=== PATIENT | male | born 1955 | race Caucasian/White ===

== ENCOUNTER 2018-06-11 05:48 | Inpatient (IN) ==
[2018-06-11] MEDS ORDERED: TICAGRELOR 90 MG TABLET PO STA (05:50)
[2018-06-11] MEDS ORDERED: MORPHINE 4 MG/1 ML VIAL ONE (05:51)
[2018-06-11] MEDS ORDERED: NITROGLYCERIN 2% OINT 1 INCH/GM PACK TOP ONE (05:51)
[2018-06-11] MEDS ORDERED: ASPIRIN 325 MG TABLET ONE (05:51)
[2018-06-11] MEDS ORDERED: ONDANSETRON 4 MG/2 ML VIAL ONE (05:51)
[2018-06-11] MEDS ORDERED: TICAGRELOR 90 MG TABLET ONE (05:52)
[2018-06-11] MEDS ORDERED: HEPARIN 5,000 UNIT/1 ML VIAL ONE ×2 (05:52→06:33)
[2018-06-11] MEDS ORDERED: ONDANSETRON 4 MG/2 ML VIAL IV STA (06:03)
[2018-06-11] MEDS ORDERED: HEPARIN 5,000 UNIT/1 ML VIAL IV ONE (06:03)
[2018-06-11] MEDS ORDERED: MORPHINE 4 MG/1 ML VIAL IV STA (06:03)
[2018-06-11] MEDS ORDERED: NITROGLYCERIN 2% OINT 1 INCH/GM PACK TOP STA (06:03)
[2018-06-11] MEDS ORDERED: ASPIRIN 325 MG TABLET PO STA (06:03)
[2018-06-11] MEDS ORDERED: LIDOCAINE 1% 20 ML VIAL ONE (06:13)
[2018-06-11] MEDS ORDERED: HEPARIN/NACL 0.9% 2 UNITS/ML 1,000 ML IV ONE (06:13)
[2018-06-11 06:17] LABS: Basophils % 0.3 % (0.0-0.8); Eosinophils # 0.4 10*3/uL (0.0-0.87); Eosinophils % 3.2 % (0.00-10.9); Hematocrit 45.7 VOL% (42.0-52.0); Hemoglobin 15.2 GM/DL (14.0-18.0); Immature Granulocytes % 0.8 %; Immature Granulocytes Absolute 0.09 #; Lymphocytes # 2.8 10*3/uL (1.4-4.0); Lymphocytes % 24.5 % (21.2-54.2); Mean Corpuscular HGB Conc 33.3 GM/DL (32-36); Mean Corpuscular Hemoglobin 27 PG (27-34); Mean Platelet Volume 10.2 FL (9.6-12.0); Monocytes # 0.8 10*3/uL (0.11-0.8); Monocytes % 6.7 % (1.7-12.7); Neutrophils # 7.4 10*3/uL (1.4-7.4); Neutrophils % 64.5 % (38.7-73.9); Platelet Count 299 T/CUMM (130-400); Red Blood Count 5.64 MC/CUMM (3.8-5.5); Red Cell Distribution Width 14.2 % (9.3-17.3); White Blood Count 11.4 T/CUMM (4-12)
[2018-06-11] MEDS ORDERED: EPTIFIBATIDE 20,000 MCG/10 ML VIAL ONE (06:21)
[2018-06-11] MEDS ORDERED: EPTIFIBATIDE 75 MG/100 ML BOTTLE IV ONE (06:23)
[2018-06-11 06:24] LABS: INR 0.9; PT Patient Result 9.9 SECS
[2018-06-11] MEDS ORDERED: MIDAZOLAM 2 MG/2 ML VIAL ONE (06:24)
[2018-06-11] MEDS ORDERED: fentaNYL 100 MCG/2 ML VIAL ONE (06:24)
[2018-06-11] MEDS ORDERED: MORPHINE 10 MG/1 ML VIAL ONE (06:32)
[2018-06-11 06:33] LABS: Alanine Aminotransferase 66 U/L (16-61); Albumin 4.1 G/DL (3.4-5.0); Alkaline Phosphatase 99 U/L (45-117); Aspartate Amino Transferase 35 U/L (0-37); Blood Urea Nitrogen 20 MG/DL (7-18); Calcium 9.4 MG/DL (8.5-10.1); Glucose 139 MG/DL (74-106); Osmolality,Calculated 277.8 MOS/KG (273-304); Potassium 3.7 MMOL/L (3.5-5.1); Sodium 137 MMOL/L (136-145); Total Protein 8.2 G/DL (6.4-8.3)
[2018-06-11 06:42] LABS: Troponin I 0.085 NG/ML (0.00-0.045)
[2018-06-11] MEDS ORDERED: ONDANSETRON 4 MG/2 ML VIAL IV PRN (07:36)
[2018-06-11] MEDS ORDERED: NITROGLYCERIN SL 0.4 MG TABLET SL PRN (07:36)
[2018-06-11] MEDS ORDERED: ZALEPLON 5 MG CAPSULE PO PRN (07:36)
[2018-06-11] MEDS ORDERED: MORPHINE 4 MG/1 ML VIAL IV PRN (07:36)
[2018-06-11] MEDS ORDERED: ACETAMINOPHEN 325 MG TABLET PO PRN (07:36)
[2018-06-11] MEDS ORDERED: SODIUM CHLORIDE 0.9% 1,000 ML IV SCH (08:00)
[2018-06-11 08:49] LABS: Troponin I 2.33 NG/ML (0.00-0.045)
[2018-06-11] MEDS: ASPIRIN EC 81 MG TABLET PO SCH (08:54)
[2018-06-11] MEDS ORDERED: COLCHICINE 0.6 MG TABLET PO PRN (12:53)
[2018-06-11 16:25] LABS: CKMB % 8.5 %
[2018-06-11 16:31] LABS: Troponin I 56.8 NG/ML (0.00-0.045)
[2018-06-11] MEDS: TICAGRELOR 90 MG TABLET PO SCH (20:19)
[2018-06-11] MEDS: ROSUVASTATIN 20 MG TABLET PO SCH (20:19)
[2018-06-11] MEDS: CARVEDILOL 6.25 MG TABLET PO SCH (20:19)
[2018-06-12 01:43] LABS: CKMB % 7.4 %
[2018-06-12 01:44] LABS: Troponin I 57.9 NG/ML (0.00-0.045)
[2018-06-12 03:42] LABS: Basophils % 0.2 % (0.0-0.8); Eosinophils # 0.1 10*3/uL (0.0-0.87); Eosinophils % 0.7 % (0.00-10.9); Hematocrit 40.7 VOL% (42.0-52.0); Hemoglobin 13.3 GM/DL (14.0-18.0); Immature Granulocytes % 0.5 %; Immature Granulocytes Absolute 0.06 #; Lymphocytes # 1.3 10*3/uL (1.4-4.0); Lymphocytes % 11.5 % (21.2-54.2); Mean Corpuscular HGB Conc 32.7 GM/DL (32-36); Mean Corpuscular Hemoglobin 27 PG (27-34); Mean Corpuscular Volume 81.6 FL (87-102); Mean Platelet Volume 10.1 FL (9.6-12.0); Monocytes # 0.7 10*3/uL (0.11-0.8); Monocytes % 6.3 % (1.7-12.7); Neutrophils # 9.2 10*3/uL (1.4-7.4); Neutrophils % 80.8 % (38.7-73.9); Platelet Count 182 T/CUMM (130-400); Red Blood Count 4.99 MC/CUMM (3.8-5.5); White Blood Count 11.4 T/CUMM (4-12)
[2018-06-12 04:06] LABS: Calcium 8.7 MG/DL (8.5-10.1); Osmolality,Calculated 275.8 MOS/KG (273-304); Potassium 3.5 MMOL/L (3.5-5.1)
[2018-06-12 04:47] LABS: Calcium 8.9 MG/DL (8.5-10.1); Osmolality,Calculated 277.7 MOS/KG (273-304); Potassium 3.5 MMOL/L (3.5-5.1); Risk Ratio 7.69
[2018-06-12] MEDS ORDERED: INFLUENZA VIRUS VACCINE 0.5 ML SYRINGE IM ONE (09:00)
[2018-06-12] MEDS: LEVOTHYROXINE 100 MCG TABLET PO SCH (09:08)
[2018-06-12] MEDS: TICAGRELOR 90 MG TABLET PO SCH ×2 (09:08→20:07)
[2018-06-12] MEDS: ASPIRIN EC 81 MG TABLET PO SCH (09:09)
[2018-06-12] MEDS: LISINOPRIL 2.5 MG TABLET PO SCH (09:09)
[2018-06-12] MEDS: CARVEDILOL 6.25 MG TABLET PO SCH ×2 (09:09→20:07)
[2018-06-12] MEDS: FEBUXOSTAT 80 MG TABLET PO SCH (09:15)
[2018-06-12] MEDS ORDERED: BISACODYL 5 MG TABLET PO ONE (17:57)
[2018-06-12] MEDS ORDERED: DOCUSATE SODIUM 100 MG CAPSULE PO ONE (17:57)
[2018-06-12] MEDS: ROSUVASTATIN 20 MG TABLET PO SCH (20:07)
[2018-06-13 04:35] LABS: Calcium 8.7 MG/DL (8.5-10.1); Osmolality,Calculated 275.8 MOS/KG (273-304); Potassium 3.5 MMOL/L (3.5-5.1)
[2018-06-13] MEDS: LISINOPRIL 2.5 MG TABLET PO SCH (09:23)
[2018-06-13] MEDS: CARVEDILOL 6.25 MG TABLET PO SCH ×2 (09:24→21:27)
[2018-06-13] MEDS: ASPIRIN EC 81 MG TABLET PO SCH (09:24)
[2018-06-13] MEDS: FEBUXOSTAT 80 MG TABLET PO SCH (09:24)
[2018-06-13] MEDS: TICAGRELOR 90 MG TABLET PO SCH ×2 (09:24→21:27)
[2018-06-13] MEDS: LEVOTHYROXINE 100 MCG TABLET PO SCH (10:42)
[2018-06-13] MEDS ORDERED: MAGNESIUM SULF RIDER 2 GM in PREMIX 1 EACH IV PRN (14:38)
[2018-06-13] MEDS: ROSUVASTATIN 20 MG TABLET PO SCH (21:27)
[2018-06-14 02:53] LABS: Basophils % 0.2 % (0.0-0.8); Eosinophils # 0.4 10*3/uL (0.0-0.87); Eosinophils % 4.6 % (0.00-10.9); Hematocrit 39.3 VOL% (42.0-52.0); Hemoglobin 12.9 GM/DL (14.0-18.0); Immature Granulocytes % 0.5 %; Immature Granulocytes Absolute 0.04 #; Lymphocytes # 1.5 10*3/uL (1.4-4.0); Lymphocytes % 18.2 % (21.2-54.2); Mean Corpuscular HGB Conc 32.8 GM/DL (32-36); Mean Corpuscular Hemoglobin 27 PG (27-34); Mean Corpuscular Volume 81.4 FL (87-102); Mean Platelet Volume 9.8 FL (9.6-12.0); Monocytes # 0.7 10*3/uL (0.11-0.8); Neutrophils # 5.8 10*3/uL (1.4-7.4); Neutrophils % 68.5 % (38.7-73.9); Platelet Count 173 T/CUMM (130-400); Red Blood Count 4.83 MC/CUMM (3.8-5.5); Red Cell Distribution Width 14.3 % (9.3-17.3); White Blood Count 8.5 T/CUMM (4-12)
[2018-06-14 03:14] LABS: Calcium 8.7 MG/DL (8.5-10.1); Osmolality,Calculated 282.5 MOS/KG (273-304); Potassium 3.5 MMOL/L (3.5-5.1)
[2018-06-14 03:15] LABS: Calcium 8.7 MG/DL (8.5-10.1); Osmolality,Calculated 280.7 MOS/KG (273-304); Potassium 3.4 MMOL/L (3.5-5.1)
[2018-06-14] MEDS: SODIUM CHLORIDE 0.9% 1,000 ML IV SCH ×3 (04:53→22:31)
[2018-06-14] MEDS: ASPIRIN EC 81 MG TABLET PO SCH (08:27)
[2018-06-14] MEDS: LEVOTHYROXINE 100 MCG TABLET PO SCH (08:27)
[2018-06-14] MEDS: TICAGRELOR 90 MG TABLET PO SCH ×2 (08:27→20:00)
[2018-06-14] MEDS: CARVEDILOL 6.25 MG TABLET PO SCH ×2 (08:27→20:00)
[2018-06-14] MEDS: FEBUXOSTAT 80 MG TABLET PO SCH (08:27)
[2018-06-14] MEDS: LISINOPRIL 2.5 MG TABLET PO SCH (08:30)
[2018-06-14] MEDS ORDERED: DIAZEPAM 5 MG TABLET PO ONE (10:00)
[2018-06-14] MEDS ORDERED: diphenhydrAMINE CAP 25 MG CAPSULE PO ONE (10:00)
[2018-06-14] MEDS ORDERED: HEPARIN/NACL 0.9% 2 UNITS/ML 1,000 ML IV ONE (10:16)
[2018-06-14] MEDS ORDERED: MIDAZOLAM 2 MG/2 ML VIAL ONE ×3 (11:14→12:46)
[2018-06-14] MEDS ORDERED: LIDOCAINE 1% 20 ML VIAL ONE (11:14)
[2018-06-14] MEDS ORDERED: fentaNYL 100 MCG/2 ML VIAL ONE ×2 (11:14→12:46)
[2018-06-14] MEDS ORDERED: BIVALIRUDIN 250 MG VIAL IV ONE (11:59)
[2018-06-14] MEDS ORDERED: MAGNESIUM HYDROXIDE SUSP 30 ML UDCUP PO PRN (16:33)
[2018-06-14] MEDS ORDERED: diphenhydrAMINE CAP 25 MG CAPSULE PO PRN (16:33)
[2018-06-14] MEDS: ACETAMINOPHEN/CODEINE 300-30 MG TABLET PO PRN (19:45)
[2018-06-14] MEDS: ROSUVASTATIN 20 MG TABLET PO SCH (20:00)
[2018-06-15] MEDS: ACETAMINOPHEN/CODEINE 300-30 MG TABLET PO PRN (02:23)
[2018-06-15 04:10] LABS: Basophils % 0.2 % (0.0-0.8); Eosinophils # 0.3 10*3/uL (0.0-0.87); Eosinophils % 3.5 % (0.00-10.9); Hematocrit 36.7 VOL% (42.0-52.0); Hemoglobin 11.9 GM/DL (14.0-18.0); Immature Granulocytes % 0.4 %; Immature Granulocytes Absolute 0.03 #; Lymphocytes % 12.5 % (21.2-54.2); Mean Corpuscular HGB Conc 32.4 GM/DL (32-36); Mean Corpuscular Hemoglobin 26 PG (27-34); Mean Corpuscular Volume 81.2 FL (87-102); Monocytes # 0.7 10*3/uL (0.11-0.8); Monocytes % 8.9 % (1.7-12.7); Neutrophils % 74.5 % (38.7-73.9); Platelet Count 178 T/CUMM (130-400); Red Blood Count 4.52 MC/CUMM (3.8-5.5); Red Cell Distribution Width 14.3 % (9.3-17.3)
[2018-06-15] MEDS: SODIUM CHLORIDE 0.9% 1,000 ML IV SCH (04:14)
[2018-06-15 04:42] LABS: Calcium 8.3 MG/DL (8.5-10.1); Calcium 8.6 MG/DL (8.5-10.1); Osmolality,Calculated 276.7 MOS/KG (273-304); Osmolality,Calculated 278.5 MOS/KG (273-304); Potassium 3.7 MMOL/L (3.5-5.1)
[2018-06-15] MEDS: FEBUXOSTAT 80 MG TABLET PO SCH (08:18)
[2018-06-15] MEDS: LISINOPRIL 2.5 MG TABLET PO SCH (08:18)
[2018-06-15] MEDS: LEVOTHYROXINE 100 MCG TABLET PO SCH (08:18)
[2018-06-15] MEDS: CARVEDILOL 6.25 MG TABLET PO SCH (08:19)
[2018-06-15] MEDS: TICAGRELOR 90 MG TABLET PO SCH (08:19)
[2018-06-15] MEDS: ASPIRIN EC 81 MG TABLET PO SCH (08:19)
[2018-06-15] MEDS ORDERED: MELOXICAM 7.5 MG TABLET PO STA (10:05)
[2018-06-15 11:42] VITALS: BP 130/70
== END 2018-06-15 13:05 | disposition home or self-care (01) | DRG 247 ==
LOC: N.ED 05:48 → N.CC 06:11 → N.EDINP 06:46 → N.CC 07:18 → N.TELEN 06-12 13:41
PROVIDERS: ADMIT Internal Medicine Cardiovascular Disease; ATTEND Internal Medicine Cardiovascular Disease
PROC: CLCCHCL (ICD-10-PCS; 2018-06-11 06:45)

== ENCOUNTER 2021-10-21 16:10 | Observation (INO) ==
[2021-10-21] MEDS ORDERED: ASPIRIN 325 MG TABLET PO STA ×2 (16:21→16:46)
[2021-10-21 17:09] LABS: Basophils % 0.3 % (0.0-0.8); Eosinophils # 0.3 10*3/uL (0.0-0.87); Eosinophils % 3.7 % (0.00-10.9); Hematocrit 42.9 VOL% (42.0-52.0); Hemoglobin 13.7 GM/DL (14.0-18.0); Immature Granulocytes % 0.7 %; Immature Granulocytes Absolute 0.06 #; Lymphocytes # 2.2 10*3/uL (1.4-4.0); Lymphocytes % 25.6 % (21.2-54.2); Mean Corpuscular HGB Conc 31.9 GM/DL (32-36); Mean Corpuscular Volume 81.7 FL (87-102); Mean Platelet Volume 9.8 FL (9.6-12.0); Monocytes % 6.6 % (1.7-12.7); Neutrophils % 63.1 % (38.7-73.9); Platelet Count 202 T/CUMM (130-400); Red Blood Count 5.25 MC/CUMM (3.8-5.5); White Blood Count 8.6 T/CUMM (4-12)
[2021-10-21 17:24] LABS: Calcium 9.1 MG/DL (8.5-10.1); Potassium 4.1 MMOL/L (3.5-5.1)
[2021-10-21] MEDS ORDERED: ONDANSETRON 4 MG/2 ML VIAL IV PRN (17:40)
[2021-10-21] MEDS ORDERED: ACETAMINOPHEN 325 MG TABLET PO PRN (17:40)
[2021-10-21] MEDS ORDERED: MELOXICAM 7.5 MG TABLET PO PRN (17:42)
[2021-10-21] MEDS ORDERED: COLCHICINE 0.6 MG CAPSULE PO PRN (17:42)
[2021-10-21] MEDS ORDERED: NITROGLYCERIN SL 0.4 MG TABLET SL PRN (17:42)
[2021-10-21] MEDS: ROSUVASTATIN 20 MG TABLET PO SCH (18:58)
[2021-10-22] MEDS: DOCUSATE SODIUM 100 MG CAPSULE PO SCH ×3 (00:10→21:57)
[2021-10-22 06:13] LABS: Risk Ratio 3.47; VLDL Cholesterol 30.6 MG/DL
[2021-10-22] MEDS: ASPIRIN EC 81 MG TABLET PO SCH (06:29)
[2021-10-22] MEDS: LEVOTHYROXINE 100 MCG TABLET PO SCH (06:29)
[2021-10-22] MEDS ORDERED: METOPROLOL TARTRATE 50 MG TABLET PO SCH (09:30)
[2021-10-22] MEDS: LOSARTAN 50 MG TABLET PO SCH (09:39)
[2021-10-22] MEDS: EZETIMIBE 10 MG TABLET PO SCH (09:39)
[2021-10-22] MEDS: CLOPIDOGREL 75 MG TABLET PO SCH (09:39)
[2021-10-22] MEDS: PANTOPRAZOLE 40 MG TABLET PO SCH (09:39)
[2021-10-22] MEDS: allopurinoL 100 MG TABLET PO SCH (09:39)
[2021-10-22] MEDS ORDERED: SODIUM CHLORIDE 0.9% 1,000 ML IV SCH (10:00)
[2021-10-22] MEDS ORDERED: DIAZEPAM 5 MG TABLET PO ONE (10:00)
[2021-10-22] MEDS ORDERED: diphenhydrAMINE CAP 50 MG CAPSULE PO ONE (10:00)
[2021-10-22] MEDS ORDERED: LIDOCAINE 1%/EPI INJ 20 ML VIAL ONE (10:09)
[2021-10-22] MEDS ORDERED: HEPARIN/NACL 0.9% 2 UNITS/ML 2,000 UNIT/1,000 ML BAG IV ONE (10:09)
[2021-10-22] MEDS ORDERED: MIDAZOLAM 2 MG/2 ML VIAL ONE ×2 (10:34→11:12)
[2021-10-22] MEDS ORDERED: fentaNYL 100 MCG/2 ML VIAL ONE ×2 (10:35→11:12)
[2021-10-22] MEDS ORDERED: ENOXAPARIN 60 MG/0.6 ML SYRINGE ONE (10:55)
[2021-10-22] MEDS ORDERED: TIROFIBAN 5,000 MCG/100 ML PREMIX IV ONE (10:57)
[2021-10-22] MEDS ORDERED: ASPIRIN 325 MG TABLET ONE (10:57)
[2021-10-22] MEDS ORDERED: CLOPIDOGREL 300 MG TABLET ONE (11:16)
[2021-10-22] MEDS: ROSUVASTATIN 20 MG TABLET PO SCH (17:46)
[2021-10-23] MEDS: LEVOTHYROXINE 100 MCG TABLET PO SCH (05:05)
[2021-10-23] MEDS: ASPIRIN EC 81 MG TABLET PO SCH (05:06)
[2021-10-23 07:39] LABS: Basophils % 0.2 % (0.0-0.8); Eosinophils # 0.3 10*3/uL (0.0-0.87); Eosinophils % 3.9 % (0.00-10.9); Hematocrit 45.6 VOL% (42.0-52.0); Hemoglobin 14.3 GM/DL (14.0-18.0); Immature Granulocytes % 0.4 %; Immature Granulocytes Absolute 0.03 #; Lymphocytes # 1.2 10*3/uL (1.4-4.0); Mean Corpuscular HGB Conc 31.4 GM/DL (32-36); Mean Corpuscular Volume 84.3 FL (87-102); Mean Platelet Volume 9.5 FL (9.6-12.0); Monocytes % 5.4 % (1.7-12.7); Neutrophils % 76.1 % (38.7-73.9); Platelet Count 194 T/CUMM (130-400); Red Blood Count 5.41 MC/CUMM (3.8-5.5); Red Cell Distribution Width 15.2 % (9.3-17.3); White Blood Count 8.2 T/CUMM (4-12)
[2021-10-23 07:57] LABS: Calcium 9.3 MG/DL (8.5-10.1); Osmolality,Calculated 274.8 MOS/KG (273-304); Potassium 4.6 MMOL/L (3.5-5.1)
[2021-10-23 08:26] VITALS: BP 102/66
[2021-10-23] MEDS ORDERED: NEBIVOLOL 10 MG TABLET PO SCH (09:00)
[2021-10-23] MEDS: EZETIMIBE 10 MG TABLET PO SCH (10:35)
[2021-10-23] MEDS: LOSARTAN 50 MG TABLET PO SCH (10:35)
[2021-10-23] MEDS: DOCUSATE SODIUM 100 MG CAPSULE PO SCH (10:35)
[2021-10-23] MEDS: CLOPIDOGREL 75 MG TABLET PO SCH (10:35)
[2021-10-23] MEDS: PANTOPRAZOLE 40 MG TABLET PO SCH (10:35)
[2021-10-23] MEDS: allopurinoL 100 MG TABLET PO SCH (10:35)
== END 2021-10-23 11:09 | disposition home or self-care (01) ==
LOC: N.EDINP 16:10 → N.ED 16:10 → N.EDINP 20:55 → N.TELES 20:59
PROVIDERS: ADMIT Family Medicine; ATTEND Family Medicine
PROC: CLCCHCL (ICD-10-PCS; 2021-10-22 10:45)

== ENCOUNTER 2022-02-15 15:58 | Observation (INO) ==
[2022-02-15 16:30] LABS: Basophils % 0.3 % (0.0-0.8); Eosinophils # 0.1 10*3/uL (0.0-0.87); Eosinophils % 1.5 % (0.00-10.9); Hematocrit 44.9 VOL% (42.0-52.0); Hemoglobin 14.2 GM/DL (14.0-18.0); Immature Granulocytes % 0.6 %; Immature Granulocytes Absolute 0.05 #; Lymphocytes # 1.6 10*3/uL (1.4-4.0); Lymphocytes % 17.5 % (21.2-54.2); Mean Corpuscular HGB Conc 31.6 GM/DL (32-36); Mean Corpuscular Volume 82.2 FL (87-102); Mean Platelet Volume 9.8 FL (9.6-12.0); Monocytes # 0.3 10*3/uL (0.11-0.8); Monocytes % 3.5 % (1.7-12.7); Neutrophils % 76.6 % (38.7-73.9); Platelet Count 275 T/CUMM (130-400); Red Blood Count 5.46 MC/CUMM (3.8-5.5); Red Cell Distribution Width 14.9 % (9.3-17.3); White Blood Count 8.9 T/CUMM (4-12)
[2022-02-15 16:55] LABS: Albumin 4.5 G/DL (3.4-5.0); Bilirubin,Total 0.7 MG/DL (0.20-1.00); Calcium 10.1 MG/DL (8.5-10.1); Osmolality,Calculated 290.3 MOS/KG (273-304); Potassium 4.2 MMOL/L (3.5-5.1); Total Protein 8.1 G/DL (6.4-8.2)
[2022-02-15] MEDS ORDERED: SODIUM CHLORIDE 0.9% 2,000 ML IV STA (17:00)
[2022-02-15] MEDS ORDERED: ONDANSETRON 4 MG/2 ML VIAL IV STA ×2 (17:03)
[2022-02-15] MEDS ORDERED: ONDANSETRON 4 MG/2 ML VIAL ONE (17:04)
[2022-02-15] MEDS ORDERED: ONDANSETRON 4 MG/2 ML VIAL IV PRN (19:09)
[2022-02-15] MEDS ORDERED: DEXTROSE 10% 250 ML BAG IV PRN (19:09)
[2022-02-15] MEDS ORDERED: GLUCAGON 1 MG VIAL IM PRN (19:09)
[2022-02-15] MEDS ORDERED: ACETAMINOPHEN 325 MG TABLET PO PRN (19:09)
[2022-02-15] MEDS: SODIUM CHLORIDE 0.9% 1,000 ML IV SCH (20:34)
[2022-02-15] MEDS: DOCUSATE SODIUM 100 MG CAPSULE PO SCH (20:34)
[2022-02-15] MEDS: INSULIN LISPRO 100 UNIT/ML SUBCUT SCH (20:43)
[2022-02-15] MEDS ORDERED: NITROGLYCERIN SL 0.4 MG TABLET SL PRN (23:14)
[2022-02-16] MEDS: LEVOTHYROXINE 100 MCG TABLET PO SCH (06:17)
[2022-02-16 06:45] LABS: Albumin 3.5 G/DL (3.4-5.0); Bilirubin,Total 0.5 MG/DL (0.20-1.00); Calcium 8.5 MG/DL (8.5-10.1); Osmolality,Calculated 286.1 MOS/KG (273-304); Potassium 3.9 MMOL/L (3.5-5.1); Total Protein 7.1 G/DL (6.4-8.2)
[2022-02-16] MEDS: CLOPIDOGREL 75 MG TABLET PO SCH (09:23)
[2022-02-16] MEDS: NEBIVOLOL 10 MG TABLET PO SCH (09:23)
[2022-02-16] MEDS: ASPIRIN EC 81 MG TABLET PO SCH (09:23)
[2022-02-16] MEDS: PANTOPRAZOLE 40 MG TABLET PO SCH (09:23)
[2022-02-16] MEDS: DOCUSATE SODIUM 100 MG CAPSULE PO SCH ×2 (09:23→20:48)
[2022-02-16] MEDS: EZETIMIBE 10 MG TABLET PO SCH (09:23)
[2022-02-16] MEDS: INSULIN LISPRO 100 UNIT/ML SUBCUT SCH ×4 (09:25→21:38)
[2022-02-16] MEDS: SODIUM CHLORIDE 0.9% 1,000 ML IV SCH ×3 (10:50→17:32)
[2022-02-16] MEDS ORDERED: SIMVASTATIN 10 MG TABLET PO SCH (21:00)
[2022-02-17] MEDS: SODIUM CHLORIDE 0.9% 1,000 ML IV SCH ×2 (00:15→10:14)
[2022-02-17] MEDS: LEVOTHYROXINE 100 MCG TABLET PO SCH (05:25)
[2022-02-17 05:37] LABS: Basophils % 0.2 % (0.0-0.8); Eosinophils # 0.4 10*3/uL (0.0-0.87); Eosinophils % 6.4 % (0.00-10.9); Hematocrit 39.1 VOL% (42.0-52.0); Hemoglobin 12.4 GM/DL (14.0-18.0); Immature Granulocytes % 0.5 %; Immature Granulocytes Absolute 0.03 #; Lymphocytes # 1.6 10*3/uL (1.4-4.0); Lymphocytes % 26.9 % (21.2-54.2); Mean Corpuscular HGB Conc 31.7 GM/DL (32-36); Mean Corpuscular Volume 84.4 FL (87-102); Mean Platelet Volume 10.3 FL (9.6-12.0); Monocytes # 0.4 10*3/uL (0.11-0.8); Monocytes % 6.4 % (1.7-12.7); Neutrophils % 59.6 % (38.7-73.9); Red Blood Count 4.63 MC/CUMM (3.8-5.5); Red Cell Distribution Width 15.1 % (9.3-17.3)
[2022-02-17 05:39] LABS: White Blood Count 5.8 T/CUMM (4-12)
[2022-02-17 05:40] LABS: Platelet Count 169 T/CUMM (130-400)
[2022-02-17 05:43] LABS: Alanine Aminotransferase 49 U/L (16-61); Alkaline Phosphatase 92 U/L (45-117); Aspartate Amino Transferase 33 U/L (0-37); Bilirubin,Direct < 0.100 MG/DL (0.0-0.20); Bilirubin,Indirect 0.3 MG/DL (0.0-1.0); Blood Urea Nitrogen 14 MG/DL (7-18); Calcium 8.4 MG/DL (8.5-10.1); Carbon Dioxide 25 MMOL/L (21-32); Chloride 113 MMOL/L (98-107); Glucose 111 MG/DL (74-106); Osmolality,Calculated 287.8 MOS/KG (273-304); Potassium 4.7 MMOL/L (3.5-5.1); Sodium 144 MMOL/L (136-145); Total Protein 6.3 G/DL (6.4-8.2)
[2022-02-17 08:43] VITALS: BP 150/80
[2022-02-17] MEDS: CLOPIDOGREL 75 MG TABLET PO SCH (10:13)
[2022-02-17] MEDS: EZETIMIBE 10 MG TABLET PO SCH (10:13)
[2022-02-17] MEDS: NEBIVOLOL 10 MG TABLET PO SCH (10:13)
[2022-02-17] MEDS: INSULIN LISPRO 100 UNIT/ML SUBCUT SCH (10:13)
[2022-02-17] MEDS: PANTOPRAZOLE 40 MG TABLET PO SCH (10:13)
[2022-02-17] MEDS: DOCUSATE SODIUM 100 MG CAPSULE PO SCH (10:13)
[2022-02-17] MEDS: ASPIRIN EC 81 MG TABLET PO SCH (10:13)
== END 2022-02-17 10:25 | disposition home or self-care (01) ==
LOC: N.EDINP 15:58 → N.ED 15:58 → N.EDINP 18:35 → N.TELEN 18:49
PROVIDERS: ADMIT Family Medicine; ATTEND Family Medicine